=== PATIENT | female | born 1990 | race Two or more races ===

== ENCOUNTER 2025-05-17 17:40 | Emergency (ER) | payer MEDICAID, SELFPAY ==
[2025-05-17 18:05] VITALS: BP 130/82; PULSE 116; RESP 20; TEMP 38.7; O2SAT 98; BMI 39.4
--- NOTE | 2025-05-17 18:42 | PD.EDURI ---
Upper Respiratory Inf. RME/HPI General Chief Complaint: Dental/Oral/Throat Stated Complaint: Throat pain, fever, abdominal pain Time Seen by Provider: 05/17/25 18:14 Arrival date/time: 05/17/25 17:40 34F with history of DM presents to ED with 2 days of cough, sore throat, fevers/chills, and body aches including ab area. Patient denies N/V, dysuria, and diarrhea. Limitations: no limitations Related Data Home Medications ?Medication ?Instructions ?Recorded ?Confirmed metformin 1,000 mg tablet 1,000 mg PO QDAY 02/20/18 04/13/23 insulin glargine 100 unit/mL (3 50 unit subcut BID 04/13/23 04/13/23 mL) subcutaneous pen (Basaglar KwikPen U-100 Insulin) omega-3 acid ethyl esters 1 gram 2 g PO QDAY 04/13/23 04/13/23 capsule ondansetron HCl 4 mg tablet 4 mg PO TID PRN Nausea and vomiting 04/13/23 04/13/23 Previous Rx's ?Medication ?Instructions ?Recorded ibuprofen 800 mg tablet 800 mg PO TID PRN pain #30 tabs 02/17/23 nirmatrelvir 300 mg (150 mg See Rx Instructions PO .COMPLEX 05/17/25 x2)-ritonavir 100 mg tablet,dose #30 tabs pack (Paxlovid) Allergies Allergy/AdvReac Type Severity Reaction Status Date / Time No Known Allergies Allergy Verified 05/17/25 17:45 Review of Systems Review of Systems Systems Reviewed: All systems reviewed, normal except as documented Constitutional Constitutional: Reports system reviewed and no additional complaints, except as documented, Reports as per HPI, Reports body ache(s), Reports chills, Reports fever(s) and Denies headache(s) ENT Ears, Nose, Mouth, and Throat: Reports as per HPI, Denies disequilibrium, Denies headache(s) and Reports sore throat Cardiovascular Cardiovascular: Reports system reviewed and no additional complaints, except as documented, Denies chest pain and Denies dyspnea Respiratory Respiratory: Reports system reviewed and no additional complaints, except as documented, Reports as per HPI, Reports cough and Denies dyspnea Gastrointestinal Gastrointestinal: Reports system reviewed and no additional complaints, except as documented, Denies abdominal pain, Denies nausea and Denies vomiting Neurologic Neurologic: Reports system reviewed and no additional complaints, except as documented, Denies confusion, Denies disequilibrium and Denies headache(s) Psychiatric Psychiatric: Denies confusion Past Medical History Past Medical History CARDIAC: Negative Congestive Heart Failure RESPIRATORY: Negative Chronic Obstructive Pulmonary Disease (COPD) GENITOURINARY: Negative Renal Disease ENDOCRINE: Positive Endocrine Disorders and Diabetes Mellitus Type 2; Negative Diabetes Mellitus Type 1 Social History SMOKING STATUS: Never smoker SECOND HAND EXPOSURE: No SUBSTANCE USE: does not use ED Exam General Limitations: Present no limitations General appearance: Present alert and in no apparent distress Head Head exam: Present atraumatic Eye Eye exam: Present normal appearance, PERRL and EOMI ENT ENT exam: Present normal exam, normal oropharynx and mucous membranes moist Neck Neck exam: Present normal inspection, full ROM and trachea midline Chest Chest inspection: Present normal inspection and symmetric chest wall rise Respiratory Respiratory exam: Present normal lung sounds bilaterally Cardiovascular Cardiovascular exam: Present regular rate, normal rhythm and normal heart sounds Abdominal Exam Abdominal exam: Present soft and normal bowel sounds Extremities Exam Extremities exam: Present normal inspection and full ROM Back Exam Back exam: Present normal inspection and full ROM Neurological Exam Neurological exam: Present alert, oriented X3 and CN II-XII intact Psychiatric Psychiatric exam: Present normal affect and normal mood Skin Skin exam: Present warm, dry, intact and normal color Course Quality Measures none Orders Category Date Time Status Bedside COVID-19 Antigen Test NOW Care 05/17/25 18:39 Active Bedside Influenza A&B Antigen Test NOW Care 05/17/25 18:39 Active Acetaminophen Tab [Tylenol ES Tab] Med 05/17/25 18:29 Discontinued 1,000 mg PO X1 ONE Vital Signs Vital signs: Vital Signs Temperature 101.7 F H 05/17/25 18:05 Pulse Rate 116 H 05/17/25 18:05 Respiratory Rate 20 05/17/25 18:05 Blood Pressure 130/82 05/17/25 18:05 Pulse Oximetry (%) 98 05/17/25 18:05 Oxygen Delivery Method Room Air 05/17/25 18:05 O2 at 98% on RA and WNLs Upper Respiratory Infection MDM Narrative MDM Narrative:: 34F with history of DM presents to ED with 2 days of cough, sore throat, fevers/chills, and body aches including ab area. Patient denies N/V, dysuria, and diarrhea. Physical exam reveals clear oropharynx and lungs. Normal WOB. Patient is febrile, but does not appear toxic. COVID+. Will give Paxlovid given history of DM. Patient data External records reviewed:: [facility] previous records Clinical information provided by:: patient Social determinants that could affect healthcare access:: none Patient has the following chronic illnesses:: DM How is presenting disease/condition affected by chronic disease/condition?: exacerbated by Evaluation data The following diagnostics were reviewed and interpreted by me:: lab results Lab and/or radiology exams considered but not ordered:: ordered Interpretation Summary: above Medications / Prescriptions Medications or Prescriptions considered but not ordered:: ordered Medication administrations:: Medication Administration History Discontinued Medications Acetaminophen (Acetaminophen 500 Mg Tablet) 1,000 mg PO X1 ONE Stop: 05/17/25 18:30 above Consultations Consultation(s) initiated? (list below): No Diagnosis Upper Respiratory Differential Diagnosis: upper respiratory infection, croup, otitis media, sinusitis, viral infection, bronchitis, influenza and pharyngitis Most likely diagnosis given after review of the tests above:: COVID Admission Indicated Admission indicated?: not indicated Admission Request Was there a request for admission?: No Disposition Plan Disposition Plan: Discharge Discharge Attestation Discharge Attestation: The patient and all family members were given an opportunity to ask questions and understood the discharge instructions. Discharge instructions specifically effects, indications for sooner follow up or return to the emergency department, and the expected course of current diagnosis. Patient condition: Stable Discharge Plan Plan Patient Disposition: HOME (Self Care) Discharge Disposition comment: Stable Prescriptions/Referrals Prescriptions/Med Rec: New Paxlovid 300 mg (150 mg x 2)-100 mg tablets,dose pack See Rx Instructions .ROUTE .COMPLEX Qty: 30 0RF Rx Instructions: take TWO 150 mg tablets of nirmatrelvir with ONE 100 mg tablet of ritonavir twice daily for 5 days No Action metformin 1,000 mg Tablet 1,000 mg PO QDAY insulin glargine [Basaglar KwikPen U-100 Insulin] 100 unit/mL (3 mL) insulin pen 50 unit SUBCUT BID Patient Comments: INJECT 50 UNITS SUBCUTANEOUSLY TWICE A DAY ondansetron HCl 4 mg tablet 4 mg PO TID PRN (Reason: Nausea and vomiting) omega-3 acid ethyl esters 1 gram capsule 2 g PO QDAY Patient Comments: TAKE 1 CAPSULE BY MOUTH EVERY DAY ibuprofen 800 mg tablet 800 mg PO TID PRN (Reason: pain) Qty: 30 0RF Problem List Clinical Impression: COVID-19 Patient/Caregiver Discharge Instructions Additional Instructions: Please follow-up with PCP within 24-48 hours and return immediately if symptoms worsen. Ibuprofen/Tylenol can be used simultaneously for greater fever/pain control. Benadryl is good for cough, congestion, and sleep. Keep hydrated. Print Language: Sami Stand Alone Forms: Patient Portal Info Letter PA/[employer] Supervising Physician ABHISHEK/GRICEL Supervising Physician: Dr. Kim
== END 2025-05-17 18:47 | disposition home or self-care (01) ==
LOC: SERX 18:50
PROVIDERS: Emergency Provider Emergency Medicine; PCP Family Medicine
DX: U07.1 COVID-19 (principal)
CPT/HCPCS: 87811; 99283